=== PATIENT | female | born 2005 | race Caucasian/White ===

== ENCOUNTER 2024-03-17 10:37 | Outpatient (CLI) | payer OTHER, SELFPAY | END 2024-03-17 10:38 | disposition home or self-care (01) | LOC: LKVREF 10:38 | PROVIDERS: PCP Physician Assistant Medical; Visit Provider Physician Assistant Medical | DX: Z00.00 Encounter for general adult medical examination without abnormal findings (principal); Z13.6 Encounter for screening for cardiovascular disorders | CPT/HCPCS: 80061 ==

== ENCOUNTER 2024-03-18 16:28 | Outpatient (CLI) | payer OTHER, SELFPAY ==
--- NOTE | 2024-03-18 16:45 | CRLHL7_ITS ---
For Patients: As a result of the Cures Act, medical imaging exams and procedure reports are released immediately into your electronic medical record. You may view this report before your referring provider. If you have questions, please contact your health care provider. Indication: Palpable mass. Technique: Ultrasound pelvis soft tissue with color Doppler analysis. Comparison: None. Findings/Impression: Normal exam. No mass, lymphadenopathy, or other abnormality in the right labial area of interest. Dictated by Peyman Leiva MD @ 03/18/2024 5:30:14 PM (Electronically Signed)
== END 2024-03-18 16:29 | disposition home or self-care (01) ==
PROVIDERS: PCP Physician Assistant Medical; Visit Provider Physician Assistant Medical
DX: M79.89 Other specified soft tissue disorders (principal)
CPT/HCPCS: 76857